=== PATIENT | male | born 1950 | race Asian ===

== ENCOUNTER 2017-04-05 08:52 | Day surgery (SDC) | payer OTHER | END 2017-04-05 10:50 | disposition home or self-care (01) | LOC: OR 08:52 | PROC: 08RJ3JZ Replacement of Right Lens with Synthetic Substitute, Percutaneous Approach (ICD-10-PCS; principal; 2017-04-05) | DX: H25.811 Combined forms of age-related cataract, right eye (principal) | CPT/HCPCS: 66984; V2632 ==

== ENCOUNTER 2017-05-10 07:27 | Day surgery (SDC) | payer OTHER | END 2017-05-10 12:20 | disposition home or self-care (01) | LOC: OR 07:27 | PROC: 08RK3JZ Replacement of Left Lens with Synthetic Substitute, Percutaneous Approach (ICD-10-PCS; principal; 2017-05-10) | DX: H25.812 Combined forms of age-related cataract, left eye (principal) | CPT/HCPCS: 66984; J0171; J2405; S0028; V2632 ==